=== PATIENT | male | born 1995 | race Caucasian/White ===

== ENCOUNTER 2017-01-31 15:17 | Emergency (ER) | payer OTHER ==
[~2017-01-31] VITALS: Ht 157.5 cm; Wt 60.0 kg
[~2017-01-31 15:17] MED LIST: CYCL-319 PO; HYDR-3498 PO; IBUP-1542 PO; IBUP800T25 PO
[2017-01-31 15:21] VITALS: Ht 157.5 cm; Wt 60.0 kg
--- NOTE | 2017-01-31 16:42 | RADRPT ---
PROCEDURE: XR Shoulder. CLINICAL INDICATION: Right shoulder pain TECHNIQUE: Three views of the right shoulder are available for review. COMPARISON: None available FINDINGS: The humeral head is located. The AC joint is maintained. There is no acute osseous or articular abn ormality. No evidence for fracture. The visualized portions of the right lung are clear . IMPRESSION: 1. Unremarkable right shoulder x-ray series. 2. No acute fracture or dislocation is seen. RPTAT: PP .Leno Irvin MD, Date Time Electronically viewed and signed by .Leno Irvin MD, MD on 01/31/2017 16:42 .d/
--- NOTE | 2017-01-31 16:43 | RADRPT ---
PROCEDURE: XR Chest. CLINICAL INDICATION: Chest wall pain TECHNIQUE: Single frontal chest x-ray. COMPARISON: 09/03/2013 FINDINGS: The lungs are clear. No focal opacification is seen. The cardiomediastinal silhouette is unremarka ble. The osseous structures are unremarkable. IMPRESSION: 1. No acute infiltrate or interval change. RPTAT: PP .Leno Irvin MD, MD Date Time Electronically viewed and signed by .Leno Irvin MD, MD on 01/31/2017 16:42 .d/
--- NOTE | 2017-01-31 16:53 | ERD ---
ER Documentation Chief Complaint Date/Time DATE: 01/31/17 TIME: 16:50 Chief Complaint RIGH ARM PAIN AFTER A HEAVY LIFTING HPI This is a 21-year-old male presents to the ER with right axilla pain that radiates into his shoulder and his right chest wall. Patient states that pain started after he lifted a heavy box. He states that he noticed he had a small lump in his right axilla, mass has been increasing in size and has become more painful. Patient denies any fevers or chills. He denies any night sweats, weight loss. Pain is throbbing in quality is worse whenever he moves his shoulder up and down or whenever he touches the mass. There is no redness or discharge from the area. ROS 12 point review of systems was done, all negative except per HPI. Medications Home Meds Active Scripts Ibuprofen* (Motrin*) 600 Mg Tab, 600 MG PO Q6, #30 TAB Prov:LIO GARCIA 01/31/17 Ibuprofen* (Motrin*) 600 Mg Tab, 600 MG PO Q6, #30 TAB Prov:LIO GARCIA 02/03/16 Hydrocodone Bit-Acetaminophen* (Athol*) 5-325 Mg Tab, 1 TAB PO Q6 Y for PAIN, # 20 TAB Prov:LIO GARCIA 02/03/16 Ibuprofen* (Motrin*) 800 Mg Tab, 800 MG PO Q6H Y for PAIN AND OR ELEVATED TEMP, #30 TAB Prov:SHASHI VAUGHAN DO 08/06/15 Cyclobenzaprine Hcl* (Cyclobenzaprine Hcl*) 10 Mg Tablet, 10 MG PO TID, #15 TAB Prov:CONY TABOR PA-C 03/17/15 Ibuprofen* (Motrin*) 600 Mg Tab, 600 MG PO Q6, #20 TAB Prov:CONY TABOR PA-C 03/17/15 Reported Medications [None] No Conflict Check 02/18/13 [None] No Conflict Check 10/15/09 Allergies Allergies: Coded Allergies: No Known Allergies (Verified Allergy, Mild, 02/18/13) PMhx/Soc History of Surgery: Yes (Lac Repair) Anesthesia Reaction: No Hx Neurological Disorder: No Hx Respiratory Disorders: No Hx Cardiac Disorders: No Hx Psychiatric Problems: No Hx Miscellaneous Medical Probl: Yes (R Arm Fx,Scalp Lac) Hx Alcohol Use: Yes (Social) Hx Substance Use: Yes (Marijuana smoking occasionally) Hx Tobacco Use: Yes Smoking Status: Never smoker Physical Exam Vitals Vital Signs Date Time Temp Pulse Resp B/P Pulse Ox O2 Delivery O2 Flow Rate FiO2 01/31/17 15:21 98.1 82 18 124/57 88 Physical Exam GENERAL: The patient is well developed and appropriate for usual state of health , in no apparent distress. HEENT: Atraumatic. CHEST: Clear to auscultation bilaterally. There are no rales, wheezes or rhonchi. he is tender to palpation to the right chest wall. HEART: Regular rate and rhythm. No murmurs, clicks, rubs or gallops. EXTREMITIES: Right shoulder: The right shoulder is without obvious asymmetry or deformity when compared to the left shoulder. No surface trauma ecchymosis or crepitus. No bony deformity or prominence of the humeral head. No erythema, warmth, swelling. Not tender to palpation over the clavicle, AC joint, acromion , scapula or humeral head. Not tender to palpation of the bicipital groove or soft tissues. Patient does have a 4 cm x 5 cm mass to the right axilla. Patient has painful extension of the shoulder. He however has normal and nonpainful flexion, internal rotation, external rotation, abduction, abduction. Negative drop arm test. Distal motor and neurovascular status is intact. Patient has full range of motion of the elbow with no pain. NEURO: Alert and oriented. Results 24 hrs [place] [address] Radiology Main Line: [phone] DIAGNOSTIC IMAGING REPORT Patient: CIERRA WORLEY : 1995 Age: 21 Sex: M MR #: [id number] DOS: 01/31/17 0000 Ordering MD: LIO GARCIA PA-C Location: [facility] Room/Bed: PROCEDURE: XR Chest. CLINICAL INDICATION: Chest wall pain TECHNIQUE: Single frontal chest x-ray. COMPARISON: 09/03/2013 FINDINGS: The lungs are clear. No focal opacification is seen. The cardiomediastinal silhouette is unremarkable. The osseous structures are unremarkable. IMPRESSION: 1. No acute infiltrate or interval change. RPTAT: PP .Leno Irvin MD, MD Date Time Electronically viewed and signed by .Leno Irvin MD, MD on 01/31/2017 16:42 .d/ CC: LIO GARCIA [place] [address] Radiology Main Line: [phone] DIAGNOSTIC IMAGING REPORT Patient: CIERRA WORLEY : 1995 Age: 21 Sex: M MR #: [id number] DOS: 01/31/17 0000 Ordering MD: LIO GARCIA MS- Location: [facility] Room/Bed: PROCEDURE: XR Shoulder. CLINICAL INDICATION: Right shoulder pain TECHNIQUE: Three views of the right shoulder are available for review. COMPARISON: None available FINDINGS: The humeral head is located. The AC joint is maintained. There is no acute osseous or articular abnormality. No evidence for fracture. The visualized portions of the right lung are clear . IMPRESSION: 1. Unremarkable right shoulder x-ray series. 2. No acute fracture or dislocation is seen. RPTAT: PP .Leno Irvin MD, MD Date Time Electronically viewed and signed by .Leno Irvin MD, MD on 01/31/2017 16:42 .d/ CC: JOSELIO SINCLAIR [place] [address] Radiology Main Line: [phone] DIAGNOSTIC IMAGING REPORT Patient: CIERRA WORLEY : 1995 Age: 21 Sex: M MR #: [id number] DOS: 01/31/17 0000 Ordering MD: LIO GARCIA. PA-C Location: [facility] Room/Bed: PROCEDURE: Right axillary soft tissue ultrasound. CLINICAL INDICATION: Right axillary tail breast lump TECHNIQUE: Right axillary and axillary tail breast sonography was performed. COMPARISON: None FINDINGS: No solid or suspicious masses. Multiple enlarged right axillary lymph nodes are present measuring up to 3.9 cm with cortical thickening and loss of the normal fatty hilum. No cysts or fluid collections are present. IMPRESSION: Palpable right axillary lump corresponds to right axillary lymphadenopathy. Lymphadenopathy could be reactive from infectious etiology or secondary to lymphoproliferative disorders, such as lymphoma. In the absence of any known clinical history, tissue biopsy is warranted. BI-RADS 4: SUSPICIOUS ABNORMALITY RPTAT: EE .Bebo Shah MD, Date Time Electronically viewed and signed by .Bebo Shah MD, on 01/31/2017 17:18 .M/ CC: LIO GARCIA Procedures/MDM This is a 21-year-old male presents to the ER with a mass to his right axilla, this is BI-RADS 4: Suspicious abnormality her ultrasound that was done. Patient was told that he needs to follow-up with his primary care doctor as soon as possible and get a biopsy as soon as possible of this mass as this could be a malignant process such as lymphoma. At this time patient is afebrile and well-appearing. Suspicion for abscess, deep space infection cellulitis is low. Patient will be sent home with ibuprofen for pain. He is to follow-up with his primary care doctor within 1-2 days or return to ER sooner if symptoms worsen. My medical decision making was shared with the patient he understands and agrees with plan. Departure Diagnosis: Primary Impression: Axillary lymphadenopathy Condition: Stable LIO GARCIA Jan 31, 2017 16:53
--- NOTE | 2017-01-31 17:19 | RADRPT ---
PROCEDURE: Right axillary soft tissue ultrasound. CLINICAL INDICATION: Right axillary tail breast lump TECHNIQUE: Right axillary and axillary tail breast sonography was performed. COMPARISON: None FINDINGS: No solid or suspicious masses. Multiple enlarged right axillary lymph nodes are present measuring up to 3.9 cm with cortical thicke ar and loss of the normal fatty hilum. No cysts or fluid collections are present. IMPRESSION: Palpable right axillary lump corresponds to right axillary lymphadenopathy. Lymphadenopathy could b e reactive from infectious etiology or secondary to lymphoproliferative disorders, such as lymphoma. In the absence of any known clinical history, tissue biopsy is warranted. BI-RADS 4: SUSPICIOUS ABNORMALITY RPTAT: EE .Bebo Shah MD, Date Time Electronically viewed and signed by .Bebo Shah MD, on 01/31/2017 17:18 .[place]/
[2017-01-31] MEDS ORDERED: IBUP-1542 PO (17:21)
== END 2017-01-31 17:30 | disposition home or self-care (01) ==
LOC: FTE 15:17
DX: R59.0 Localized enlarged lymph nodes (principal)
CPT/HCPCS: 71010; 73030; 76536; Z7502

== ENCOUNTER 2019-03-31 16:58 | Emergency (ER) | payer MEDICAID ==
[~2019-03-31] VITALS: Ht 167.6 cm; Wt 64.2 kg
[~2019-03-31 16:58] MED LIST changes: -CYCL-319 PO; +CYCL10TA7 PO; +DOXY-214 PO; +DOXY100T34 PO; -IBUP800T25 PO; +IBUP800T48 PO; +PRED20TA PO
[2019-03-31 17:03] VITALS: BP 123/67; PULSE 85; RESP 16; Ht 167.6 cm; Wt 64.2 kg
== END 2019-03-31 17:20 | disposition home or self-care (01) ==
LOC: E/R 16:58
DX: R59.9 Enlarged lymph nodes, unspecified (principal); Z87.891 Personal history of nicotine dependence
CPT/HCPCS: 99283